=== PATIENT | female | born 1965 | race African-American/Black ===

== ENCOUNTER 2016-10-25 08:01 | Inpatient (IN) | payer MEDICAID ==
[2016-10-25] VITALS (18 sets, daily range): BP systolic 110–167; BP diastolic 48–78
[~2016-10-25] VITALS: Ht 175.3 cm; Wt 70.0 kg
[~2016-10-25 08:01] MED LIST: ADULT LOW DOSE81 MG; ASPIR-LOW81 MG PO; AUGMENTIN 875-1 EACH; BACLOFEN 10MG T10 MG PO; CLOPIDOGREL75 M1 PO; DOCUSATE SODIUM1 TA2; EXTRA STRENGTH500 MG PO; HUMULIN 70100 UNITS/; LEVAQUIN500 MG; LIPITOR40 MG PO; MACRODANTIN100 MG; MULTIVITAMIN1 SGL PO; NORVASC 10MG. T10 MG PO; POLYETHYLE17 GM/Dose PO; PRINIVIL10 MG PO; TRAMADOL50 M1 PO
--- NOTE | 2016-10-25 08:21 | Emergency Room Report ---
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 Y Clinical Suspician of Infection? Y Mental Status: 1 - Regular (Normal Baseline) Sepsis Risk:Low Sepsis Risk Have you (or family members/close friends) recently traveled outside the [place]? N If Yes, where/when: Have you had exposure to infectious disease within the past month? N TB? Other? Specify: Comment The patient is brought by EMS from skilled nursing. She reportedly had 6 episodes of vomiting last night and then developed a fever. She has suspected aspiration. The patient denies any pain. She admits to shortness of breath. She was supposed to be brought to this hospital today to have a PICC line inserted for antibiotics for a decubitus ulcer infection on her RIGHT hip. ALLERGIES Coded Allergies: No Known Allergies (10/25/16) Home Medications Reported Medications Insulin Regular (Regular Insulin 10ML Vial) 7 UNITS SC TID AMLODIPINE BESYLATE (Norvasc) Aspirin (Aspir-Low) Atorvastatin Calcium (Atorvastatin) BACLOFEN (Baclofen) CLOPIDOGREL BISULFATE (Clopidogrel) SENNOSIDES/DOCUSATE SODIUM (Docusate Sodium-Senna Tablet) 150 LISINOPRIL (Lisinopril) MULTIVITAMIN (Multivitamins) Polyethylene Glycol 3350 (Polyethylene Glycol (3350)) Levofloxacin (Levaquin 500MG) NITROFURANTOIN MACROCRYSTAL (Macrodantin 100MG) Acetaminophen (Extra Strength Non-Aspirin) TRAMADOL HCL (Tramadol) History Medical History General CVA? Yes Diabetes? Yes Surgical Hx Previous Surgery?Y RIGHT BKA LEFT GREAT TOE AMPUTATION Review of Systems All Other Systems Reviewed and Negative Physical Exam Vital Signs Vital Signs Date Time Temp Pulse Resp B/P Pulse O2 O2 Flow FiO2 Ox Delivery Rate 10/25 910 112 18 142/40 97 12 10/25 0802 100.2 108 18 167/73 100 12 General Appearance alert. debilitated. G-tube. bass catheter. R BKA. Heel pads on. On O2 by mask. Eye Exam - bilateral eye normal exam, bilateral eye PERRL, bilateral eye EOMI Ear, Nose, Throat hearing grossly normal, normal ENT inspection Neck normal inspection, non-tender, supple, full range of motion Respiratory Status Yes: trachea midline, chest symmetrical, non productive cough. No: respiratory distress. Lung Sounds bilateral: rhonchi. Cardiovascular normal exam, no peripheral edema, no gallop, no JVD, no murmur, no rub, normal peripheral pulses, tachycardia Peripheral Pulses Pulses normal Yes Gastrointestinal normal bowel sounds, normal exam, non tender, soft, no organomegaly, g-tube. Back normal inspection, no CVA tenderness, no vertebral tenderness Extremities R BKA., amputated LEFT great toe. All of her other LEFT toes have dark eschar, suspicious for dry gangrene. Rectal normal exam Nurse present during exam? Yes (January) Neurologic alert, oriented to person and place. unable to assess orientation to time., right hemiparesis. Mental status normal mood/affect Skin intact, normal color, warm/dry, large sacral decubitus without surrounding cellulitis or purulent discharge Lymphatic no adenopathy Medical Decision Making LABS/Meds/Orders Pt receiving controlled substance in ED? No Results/Orders Laboratory Tests 10/25/16 1055: Urine Color YELLOW, Urine Appearance CLEAR, Urine pH 8.5, Ur Specific [place] 1.010, Urine Protein 2+ H, Urine Ketones NEGATIVE, Urine Blood TRACE-INTACT, Urine Nitrate NEGATIVE, Urine Bilirubin NEGATIVE, Urine Urobilinogen 0.2, Ur Leukocyte Esterase TRACE H, Urine Bacteria 1+, Urine Glucose NEGATIVE 10/25/16 1053: WBC 22.2 *H, RBC 2.71 L, Hgb 6.7 *L, Hct 20.9 *L, MCV 77.1 L, RDW 16.2, Plt Count 942 *H, MPV 8.7, Gran % 90.2 H, Gran # 20.1 H, Lymphocytes % 6.7 L, Monocytes % 2.8, Eosinophils % 0.2, Basophils % 0.1, Lymphocytes # 1.5, Monocytes # 0.6, Eosinophils # 0.0, Basophils # 0.0, PUBS MCHC 32.0, MCH 24.7 L 10/25/16 1010: Stool Occult Blood NEGATIVE 10/25/16 0845: WBC 21.0 *H, RBC 2.94 L, Hgb 7.2 *L, Hct 22.9 *L, MCV 77.4 L, RDW 15.9, Plt Count 1019 *H, MPV 8.8, Gran % 91.4 H, Gran # 19.2 H, Total Counted 100, Lymphocytes % 6.0 L, Monocytes % 2.3, Eosinophils % 0.1, Basophils % 0.1, Neutrophils 91 H, Lymphocytes (Manual) 5 L, Lymphocytes # 1.3, Monocytes ( Manual) 4, Monocytes # 0.5, Eosinophils # 0.0, Basophils # 0.0, Platelet Estimate MARKED INCREASE, Hypochromasia 1+, Anisocytosis 1+, Microcytosis 1+, Schistocytes 2+, PUBS MCHC 31.7 L, MCH 24.5 L 10/25/16 0840: Troponin I < 0.02 10/25/16 0840: Lactic Acid 1.5 10/25/16 0840: Sodium 134 L, Potassium 4.8, Chloride 95 L, Carbon Dioxide 31, BUN 33 H, Creatinine 1.1 H, Estimated Creat Clear 79, Estimated GFR (MDRD) 53 L, Glucose 135 H, Calcium 9.8, Total Bilirubin 0.3, AST 36, ALT 39, Alkaline Phosphatase 215 H, Total Protein 6.9, Albumin 1.7 L, Globulin 5.2 H, Albumin/Globulin Ratio 0.3 L Current Medication Orders Sig/Alexia Start time Last Medication Dose Route Stop Time Status Admin Ceftriaxone Sodium 0 .STK-MED ONE 10/25 1017 DC IV Sodium Chloride 50 ML .STK-MED ONE 10/25 1017 DC IV Acetaminophen 0 .STK-MED ONE 10/25 1009 DC MA Ceftriaxone Sodium 1 GM ONCE ONE 10/25 929 DC 10/25 Sodium Chloride 50 ML IV 10/25 0959 1020 Clindamycin Phosphate 900 MG ONCE ONE 10/25 929 DC 10/25 Sodium Chloride 100 ML IV 10/25 1029 1235 Acetaminophen 650 MG ONCE ONE 10/25 829 DC 10/25 MA 10/25 0831 1021 Sodium Chloride 10 ML PRN PRN 10/25 0815 DC IV 10/26 0814 Orders Procedure Date/time Status Decision to admit 10/25 1056 Active CBC WITH AUTO DIFF 10/25 1051 Complete STOOL OCCULT BLOOD 10/25 1014 Complete DIFFERENTIAL-WBC 10/25 0745 Complete ELECTROCARDIOGRAM REQUEST 10/25 820 Active TROPONIN I 10/25 820 Complete 12 LEAD EKG-ARIAS (INITIAL) 10/25 819 Active LACTIC ACID 10/25 816 Complete URINARY CATHETER INSERT 10/25 815 Active CULTURE, BLOOD 10/25 815 Active URINALYSIS/COMPLETE 10/25 815 Complete CBC WITH AUTO DIFF 10/25 815 Complete CHEM 12 PROFILE 10/25 815 Complete CM/EKG CM/EKG Comments EKG interpreted by Reece Barillas MD: Rhythm: sinus tachycardia Rate: 112 [place]: normal Ectopy: none Conduction: normal ST Segment Changes: none T Wave Changes: Nonspecific Q Waves: none No evidence of acute ischemia or injury Baseline artifact present, but I consider the EKG adequate for accurate interpretation. XRAY/CT/US XRAY/CT/US XRAY chest XR interpretation by discussed w/radiologist Comment LEFT perihilar and lower lobe superior segment infiltrate with small LEFT effusion. Chest x-ray #2: X-ray interpreted by Reece Barillas M.D.: Central venous catheter in good position. No pneumothorax seen. Progress - 8:40 AM: Results of wound culture received from skilled nursing. Multiple organisms. Escherichia coli heavy growth, Providencia stuartii, heavy growth. Proteus species, no sensitivity to be done, moderate growth. Sensitivities reviewed. Both organisms tested are sensitive to amikacin, ceftriaxone, cefuroxime, ertapenem, and Zosyn. Prior H/H result from [place]: 9.7 on 08/25/16. PICC line was attempted in the emergency department by PICC line staff, unsuccessful. Central venous catheter placed by me. 10:45 AM:I have discussed the case with Dr. Barker who agrees to admit the patient to the hospital. We discussed the patient's clinical information, including history, exam, laboratory and radiology results and ED course. Per hospital procedure, I will write temporary bridge inpatient orders on the patient. Specific orders requested by the admitting physician: Repeat complete blood count. Antibiotics. Procedures Central Line Progress Central Venous Catheter Placement Performed by: REECE BARILLAS Consent: The procedure was performed in an emergent situation. Patient identity confirmed: arm band Time out: Immediately prior to procedure a "time out" was called to verify the correct patient, procedure, equipment, direct support professional and site/side marked as required. Indications: vascular access Site: RIGHT internal jugular Anesthesia: local infiltration Local anesthetic: lidocaine 2% Anesthetic total: 10 ml Patient sedated: no Preparation: skin prepped with 2% chlorhexidine Skin prep agent dried: skin prep agent completely dried prior to procedure Sterile barriers: all five maximum sterile barriers used - cap, mask, sterile gown, sterile gloves, and large sterile sheet Hand hygiene: hand hygiene performed prior to central venous catheter insertion Location details: right internal jugular Patient position: Trendelenburg Catheter type: triple lumen Catheter size: 7 Fr Pre-procedure: landmarks identified Ultrasound guidance: yes Number of attempts: 1 Successful placement: yes Post-procedure: line sutured Assessment: blood return through all ports Patient tolerance: Patient tolerated the procedure well with no immediate complications. Departure Departure Disposition Still a Patient Clinical Impression Primary Impression: Aspiration pneumonia Qualifiers: Aspiration pneumonia type: unspecified Laterality: left Lung location: lower lobe of lung Qualified Code: J69.0 - Pneumonitis due to inhalation of food and vomit Secondary Impressions: Anemia Qualifiers: Anemia type: unspecified type Qualified Code: D64.9 - Anemia, unspecified Decubitus ulcer, infected Qualifiers: Pressure ulcer stage: unspecified pressure ulcer stage Qualified Code: L89.90 - Pressure ulcer of unspecified site, unspecified stage Condition STABLE ED Critical Care Critical Care Yes Time spent 30-74 min (plus 30 min for procedure) Vital system(s) involved: severe sepsis I was present at bedside for Coordinating pt's care, Interpreting EKGs/Strips , During my initial exam, Reviewing lab results, Reviewing old records, Discussing pt condition, For re-examinations, Examining radiographs at 1316
[2016-10-25] MEDS ORDERED: INSULIN RE100 UNITS/ SC (08:39)
[2016-10-25 08:50] LABS: LYMPH # 1.3 K/mm3 (0.7-4.5)
[2016-10-25 08:59] LABS: HEMOGLOBIN 7.2 g/dL (12.2-16.2)
--- NOTE | 2016-10-25 09:26 | RADIOLOGY REPORT PS360 ---
CHEST-PORTABLE HISTORY: Fever with elevated white count POSSIBLE ASPIRATION COMPARISON: None available FINDINGS: There is increased density in the left hilar region which may be due to consolidation within the superior segment left lower lobe. Small left effusion also noted. Study is underpenetrated and there is motion artifact. Normal heart size. No acute bony anomalies. IMPRESSION: Left perihilar infiltrate/pneumonia with small left effusion
[2016-10-25 09:29] LABS: NEUTROPHILS 91 % (42-76)
[2016-10-25 10:18] LABS: STOOL OCCULT BLOOD NEGATIVE (NEG)
[2016-10-25 10:57] LABS: LYMPH # 1.5 K/mm3 (0.7-4.5); LYMPH % 6.7 % (10-50.0)
[2016-10-25 10:59] LABS: URINE BILIRUBIN - DIPSTICK NEGATIVE (NEG); URINE BLOOD TRACE-INTACT (NEG)
[2016-10-25 11:00] LABS: HEMOGLOBIN 6.7 g/dL (12.2-16.2)
--- NOTE | 2016-10-25 11:37 | RADIOLOGY REPORT PS360 ---
CHEST-PORTABLE HISTORY: CVC placement COMPARISON: None available FINDINGS: Right IJ central venous line has been placed with the tip in the region of the right atrium. No evidence of pneumothorax. There is cardiomegaly with mild pulmonary venous congestion. There is moderate patient rotation obscuring the left hilar region. There may be infiltrate also in the right lung base. IMPRESSION: 1. CVL tip in region of the right atrium. 2. Mild CHF with possible infiltrate in the right lung base
--- NOTE | 2016-10-25 15:42 | PHARMACY CLINIC NOTE ---
Patient Demographics Patient Demographics Admission date: 10/25/16 Date: 10/25/16 Time: 1542 Allergies Coded Allergies: No Known Allergies (10/25/16) HEIGHT- FT: 5 IN: 3.00 K.668 VTE General Information Labs: Laboratory Tests 10/25 10/25 1053 0845 Hematology Hgb (12.2 - 16.2 g/dL) 6.7 *L 7.2 *L Hct (37.0 - 47.0 %) 20.9 *L 22.9 *L Plt Count (142 - 424 K/mm3) 942 *H 1019 *H Disclaimer The following section includes nursing documentation that has been pulled in for pharmacy review. VTE prophylaxis NQF [id number] VTE prophylaxis ordered? Yes Type of prophylaxis/treatment: KATTY at 1473
--- NOTE | 2016-10-25 16:17 | HISTORY AND PHYSICAL REPORT ---
Demographics: Admit date: 10/25/16 Chief complaint: vomiting, fever PRIMARY DIAGNOSIS: SEPSIS, ASPIRATION PNEUMONIA Allergies: Coded Allergies: No Known Allergies (10/25/16) History of present illness: History of present illness: 51 year old black female with a significant history of CVA with right hemiparesis (07/31) and diabetes that is a resident at [facility] was transported to the ED via EMS for presumed aspiration. Nursing staff report vomiting episodes x 6 followed by cough and fever. Patient reports shortness of breath. Patient was scheduled for PICC line placement today for treatment of right hip decubitus ulcer infection. Patient appears much older than stated age. 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 She is confused at baseline. Contractures noted to LLE, flaccid on the right. In the ED, she was found to have leukocytosis with WBC 22.1, anemia with H/H 6.7/ 20.9 and thrombocytosis with platelets 942. CXR showed left perihilar infiltrate/pneumonia with small left effusion. Wound culture from nursing facility revealed E. Coli, Providencia Stuartii, and a Proteus species. Patient admitted to acute care for IV antibiotics and further evaluation. Spoke with Judith, patient's sister/POA regarding patients code status given her poor overall prognosis. She reports that patient has steadily declined since her daughter was struck by a car and tragically killed 2 years ago. Right BKA approximately one year ago at [facility] in [place]. CVA 07/31 was treated at [facility]. Code status changed to DNR. Past medical history: Immunization HX DT/Tetanus Unknown General CVA? Yes Diabetes? Yes Insulin Dependent: Yes Insulin Pump: No Home FSBS? Yes Past Surgical HX Previous Surgery?Y RIGHT BKA LEFT GREAT TOE AMPUTATION Current home meds: Reported Medications Ceftriaxone Sodium (Ceftriaxone) 1 GM IM DAILY Insulin Regular (Regular Insulin 10ML Vial) 7 UNITS SC TID AMLODIPINE BESYLATE (Norvasc) Aspirin (Aspir-Low) Atorvastatin Calcium (Atorvastatin) BACLOFEN (Baclofen) CLOPIDOGREL BISULFATE (Clopidogrel) LISINOPRIL (Lisinopril) MULTIVITAMIN (Multivitamins) Polyethylene Glycol 3350 (Polyethylene Glycol (3350)) NITROFURANTOIN MACROCRYSTAL (Macrodantin 100MG) Acetaminophen (Extra Strength Non-Aspirin) TRAMADOL HCL (Tramadol) Social Hx: Smoking HX Tobacco No Hx of Drug Use Drug Use? No Patient's support system is fair Review of systems: Constitutional fever. Eyes No: no symptoms reported. Ears, Nose, Mouth, Throat No no symptoms reported Respiratory cough, shortness of breath. Cardiovascular No no symptoms reported Gastrointestinal/Abdominal other (g-tube in place) Genitourinary No: no symptoms reported. Musculoskeletal other (left hemiparesis). Skin other (decubitus ulcers). Neurological Yes: see HPI. Psychiatric No: no symptoms reported. Exam: Lab data for last 24 hours: Laboratory Tests 10/25/16 1455: Miscellaneous Test POSITIVE 10/25/16 1055: Urine Color YELLOW, Urine Appearance CLEAR, Urine pH 8.5, Ur Specific [place] 1.010, Urine Protein 2+ H, Urine Ketones NEGATIVE, Urine Blood TRACE-INTACT, Urine Nitrate NEGATIVE, Urine Bilirubin NEGATIVE, Urine Urobilinogen 0.2, Ur Leukocyte Esterase TRACE H, Urine Bacteria 1+, Urine Glucose NEGATIVE 10/25/16 1053: WBC 22.2 *H, RBC 2.71 L, Hgb 6.7 *L, Hct 20.9 *L, MCV 77.1 L, RDW 16.2, Plt Count 942 *H, MPV 8.7, Gran % 90.2 H, Gran # 20.1 H, Lymphocytes % 6.7 L, Monocytes % 2.8, Eosinophils % 0.2, Basophils % 0.1, Lymphocytes # 1.5, Monocytes # 0.6, Eosinophils # 0.0, Basophils # 0.0, PUBS MCHC 32.0, MCH 24.7 L 10/25/16 1010: Stool Occult Blood NEGATIVE 10/25/16 0845: WBC 21.0 *H, RBC 2.94 L, Hgb 7.2 *L, Hct 22.9 *L, MCV 77.4 L, RDW 15.9, Plt Count 1019 *H, MPV 8.8, Gran % 91.4 H, Gran # 19.2 H, Total Counted 100, Lymphocytes % 6.0 L, Monocytes % 2.3, Eosinophils % 0.1, Basophils % 0.1, Neutrophils 91 H, Lymphocytes (Manual) 5 L, Lymphocytes # 1.3, Monocytes ( Manual) 4, Monocytes # 0.5, Eosinophils # 0.0, Basophils # 0.0, Platelet Estimate MARKED INCREASE, Hypochromasia 1+, Anisocytosis 1+, Microcytosis 1+, Schistocytes 2+, PUBS MCHC 31.7 L, MCH 24.5 L 10/25/16 0840: Troponin I < 0.02 10/25/16 08: Lactic Acid 1.5 10/25/16 0840: Sodium 134 L, Potassium 4.8, Chloride 95 L, Carbon Dioxide 31, BUN 33 H, Creatinine 1.1 H, Estimated Creat Clear 79, Estimated GFR (MDRD) 53 L, Glucose 135 H, Calcium 9.8, Total Bilirubin 0.3, AST 36, ALT 39, Alkaline Phosphatase 215 H, Total Protein 6.9, Albumin 1.7 L, Globulin 5.2 H, Albumin/Globulin Ratio 0.3 L Microbiology 10/25 839 BLOOD: Anaerobic Blood Culture - RECD 10/25 839 BLOOD: Aerobic Blood Culture - RECD 10/25 839 BLOOD: Anaerobic Blood Culture - RECD 10/25 839 BLOOD: Aerobic Blood Culture - RECD 10/25 08 BUTTOCK: Wound Culture - CAN Cancelled: Cancelled via OE: DOCTOR ORDER Admission vital signs: 1ST Vital Signs Result Date Time Pulse Ox 100 10/25 801 B/P 167/73 10/25 801 O2 Flow Rate 12 10/25 801 Temp 100.2 10/25 08 Pulse 108 10/25 08 Resp 18 10/25 801 O2 Delivery OXYGEN 10/25 1436 Exam General appearance: awake, follows simple commands, oriented to self only Eyes: conjunctiva clear ENT: dry mucous membranes, poor dentition Neck: non-tender (Right IJ TLC in place), no JVD Cardiovascular: regular rate & rhythm, no murmur, peripheral pulses diminished, 1+ RUE edema Respiratory: coarse rhonchi anteriorly, scattered posteriorly ABD: normal bowel sounds, soft, g-tube site w/o s/s infection, mild tenderness all quads Genitourinary: no hematuria, urine clear Extremities: flaccid RUE, minimal movement Right BKA, 1+ RUE edema, LLE with mild contracture, left great toe amputation, poor circulation with some necrosis on remaining toes Musculoskeletal: see above Skin: infected decubitus, see nursing note Neuro: follows simple commands, oriented to self Plan: Problem List 1. Aspiration pneumonia Assessment/Plan Continue clindamycin. NPO. 2. Decubitus ulcer, infected Assessment/Plan Rocephin as wound culture from ECF shows susceptibility. PT eval for wound care. 3. Anemia Assessment/Plan Occult stool negative. Transfuse PRBC. Will recheck in the am. 4. History of CVA with residual deficit Assessment/Plan Flaccid RUE, minimal movement RLE 5. Diabetes Assessment/Plan FSBS with sliding scale coverage. 6. Thrombocytosis Plan: see above
[2016-10-25 16:24] LABS: ABO BLOOD TYPE A; RH BLOOD TYPE POSITIVE
[2016-10-25 16:38] LABS: ANTIHUMAN GLOB CROSSMATCH COMPAT
[2016-10-25] MEDS ORDERED: CEFTRIAXONE AMER1 GM IM (16:43)
[2016-10-26] VITALS (14 sets, daily range): BP systolic 128–183; BP diastolic 59–84
--- NOTE | 2016-10-26 07:42 | ACUTE CARE PROGRESS NOTE (QUA) ---
See Addendum Progress Notes Subjective Date 10/26/16 Time 0740 Note Patient's blood pressure and overall mental status had stabilized vis--vis yesterday's date. She is alert this morning and communicative. She denies pain. She reports that she does not feel chilled or hot. Anterior lung harris have rhonchi, poor air movement, at baseline. G-tube site looks good, her right foot continues to be afflicted with significant dry and wet gangrene, left thigh stump looks pretty good. Previously noted wounds documented by nursing staff noted. Objective Findings Last VS-Temp:98.7 B/P:132/68 Pulse:100 Resp:20 SaO2:95 OXYGEN Last weight lbs:158 oz:0 K.668 Method:Bed Scales Assessment/Plan Problem List 1. Aspiration pneumonia Qualifiers: Aspiration pneumonia type: unspecified Laterality: left Lung location: lower lobe of lung Qualified Code: J69.0 - Pneumonitis due to inhalation of food and vomit 2. Decubitus ulcer, infected Qualifiers: Pressure ulcer stage: unspecified pressure ulcer stage Qualified Code: L89.90 - Pressure ulcer of unspecified site, unspecified stage 3. Anemia Qualifiers: Anemia type: unspecified type Qualified Code: D64.9 - Anemia, unspecified 4. History of CVA with residual deficit 5. Diabetes 6. Thrombocytosis Patient condition Improving, Guarded, patient is mildly improved but remains critically ill and has an extremely poor prognosis. Meds zinc and vitamin C for wound care issues, and continue current broad spectrum antibiotics why await culture results. This inpt stay is expected to cross 2 MNs from start of care Yes at 0742
[2016-10-27] VITALS (7 sets, daily range): BP systolic 123–167; BP diastolic 60–99
--- NOTE | 2016-10-27 08:41 | ACUTE CARE PROGRESS NOTE (QUA) ---
Progress Notes Subjective Date 10/27/16 Time 0715 Note Patient is alert, eyes open. She is communicating yes/no answers. She had a fever through the night that has resolved this morning. She denies pain or discomfort. Alert to self, follows simple commands. S1, S2, rate regular. Anterior lung harris clear, poor air movement. Abdomen soft, non-tender. Normoactive BS. G- tube site looks good, her right foot with dry gangrene noted. Wounds documented by nursing staff noted. Patient/family reports: no complaints Nursing reports: no complaints Objective Findings Last VS-Temp:98.7 B/P:123/60 Pulse:113 Resp:20 SaO2:97 OXYGEN Last weight lbs:149 oz:2 K.642 Method:Bed Scales Reviewed: medications, vital signs, lab results Assessment/Plan Problem List 1. Aspiration pneumonia Qualifiers: Aspiration pneumonia type: unspecified Laterality: left Lung location: lower lobe of lung Qualified Code: J69.0 - Pneumonitis due to inhalation of food and vomit 2. Decubitus ulcer, infected Qualifiers: Pressure ulcer stage: unspecified pressure ulcer stage Qualified Code: L89.90 - Pressure ulcer of unspecified site, unspecified stage 3. Anemia Qualifiers: Anemia type: unspecified type Qualified Code: D64.9 - Anemia, unspecified 4. History of CVA with residual deficit 5. Diabetes 6. Thrombocytosis Patient condition Improving, Guarded Plan: continue current care This inpt stay is expected to cross 2 MNs from start of care Yes Comments: Patient has shown some improvement; however her overall prognosis continues to be poor. Continue antibiotics based on ECF culture results. Zinc and vitamin C for wound support. PT for wound care. Process Engineering Intern consult to restart tube feeding.
[2016-10-27 09:07] LABS: LYMPH # 1.8 K/mm3 (0.7-4.5)
[2016-10-27 09:20] LABS: HEMOGLOBIN 10.5 g/dL (12.2-16.2)
[2016-10-27 11:47] LABS: NEUTROPHILS 88 % (42-76)
[2016-10-28] VITALS (7 sets, daily range): BP systolic 137–172; BP diastolic 59–78
--- NOTE | 2016-10-28 07:48 | ACUTE CARE PROGRESS NOTE (QUA) ---
Progress Notes Subjective Date 10/28/16 Time 0746 Note Patient remains alert, responsive. Once again denies pain. She continues to run fevers. Vital signs are stabilized, however. Lungs anterior harris are clear, abdomen soft and G-tube feedings are infusing well and a low rate. Leg continues to look up dismal, with gangrene both dry and wet in the foot. Previously noted wounds have made some improvement with better nursing care and hygiene here in the hospital. PT reports that it seems to be infectious matter coming from her vagina on dressing change. Objective Findings Last VS-Temp:99.9 B/P:152/78 Pulse:112 Resp:24 SaO2:91 OXYGEN Last weight lbs:149 oz:2 K.642 Method:Bed Scales Assessment/Plan Problem List 1. Aspiration pneumonia Qualifiers: Aspiration pneumonia type: unspecified Laterality: left Lung location: lower lobe of lung Qualified Code: J69.0 - Pneumonitis due to inhalation of food and vomit 2. Decubitus ulcer, infected Qualifiers: Pressure ulcer stage: unspecified pressure ulcer stage Qualified Code: L89.90 - Pressure ulcer of unspecified site, unspecified stage 3. Anemia Qualifiers: Anemia type: unspecified type Qualified Code: D64.9 - Anemia, unspecified 4. History of CVA with residual deficit 5. Diabetes 6. Thrombocytosis Patient condition Deteriorating, Guarded, overall prognosis is poor and essentially terminal. I wonder about hospice care and we will discuss with family when available. Otherwise she'll require long-term antibiotics, extensive specialty wound care, and ongoing tube feedings. I will add Flagyl for the high possibility of anaerobic GI issues. This inpt stay is expected to cross 2 MNs from start of care Yes at 0747
--- NOTE | 2016-10-28 07:49 | ACUTE CARE PROGRESS NOTE (QUA) ---
Progress Notes Subjective Date 10/28/16 Time 0748 Assessment/Plan Problem List 1. Aspiration pneumonia Qualifiers: Aspiration pneumonia type: unspecified Laterality: left Lung location: lower lobe of lung Qualified Code: J69.0 - Pneumonitis due to inhalation of food and vomit 2. Decubitus ulcer, infected Qualifiers: Pressure ulcer stage: unspecified pressure ulcer stage Qualified Code: L89.90 - Pressure ulcer of unspecified site, unspecified stage 3. Anemia Qualifiers: Anemia type: unspecified type Qualified Code: D64.9 - Anemia, unspecified 4. History of CVA with residual deficit 5. Diabetes 6. Thrombocytosis This inpt stay is expected to cross 2 MNs from start of care Yes Antibiotic Stewardship (2) Current Culture Results Microbiology 10/25 839 BLOOD: Anaerobic Blood Culture - RES 10/25 839 BLOOD: Aerobic Blood Culture - RES 10/25 830 BUTTOCK: Wound Culture - CAN Cancelled: Cancelled via OE: DOCTOR ORDER Infxn that will respond? Yes Right drug,dose,and route? Yes More targeted antbx? No How long atbx needed? 14 at 0748
[2016-10-29] VITALS (8 sets, daily range): BP systolic 158–176; BP diastolic 71–91
--- NOTE | 2016-10-29 07:57 | ACUTE CARE PROGRESS NOTE (QUA) ---
Progress Notes Admission Date: 10/25/16 Subjective Date 10/29/16 Time 0755 Note Patient is unchanged. Continues to have minimal complaints but does not converse very fluently. Anterior lung harris have rhonchi, heart rate regular. Skin exam remains essentially unchanged although hygiene is obviously better since admission the hospital. Objective Findings Last VS-Temp:99.8 B/P:161/88 Pulse:112 Resp:24 SaO2:96 OXYGEN Last weight lbs:149 oz:2 K.642 Method:Bed Scales Assessment/Plan Problem List 1. Aspiration pneumonia Qualifiers: Aspiration pneumonia type: unspecified Laterality: left Lung location: lower lobe of lung Qualified Code: J69.0 - Pneumonitis due to inhalation of food and vomit 2. Decubitus ulcer, infected Qualifiers: Pressure ulcer stage: unspecified pressure ulcer stage Qualified Code: L89.90 - Pressure ulcer of unspecified site, unspecified stage 3. Anemia Qualifiers: Anemia type: unspecified type Qualified Code: D64.9 - Anemia, unspecified 4. History of CVA with residual deficit 5. Diabetes 6. Thrombocytosis Patient condition Stable, Guarded Plan: continue current care, care management continues to work on appropriate placement. She may be a hospice candidate. We will discuss with family. This inpt stay is expected to cross 2 MNs from start of care Yes Antibiotic Stewardship (2) Infxn that will respond? Yes Right drug,dose,and route? Yes More targeted antbx? No at 0757
[2016-10-30] VITALS (8 sets, daily range): BP systolic 143–184; BP diastolic 68–92
--- NOTE | 2016-10-30 08:16 | ACUTE CARE PROGRESS NOTE (QUA) ---
Progress Notes Subjective Date 10/30/16 Time 0814 Note Ms. Hay continues without much change. She remains alert, and will smile and have a few words when she is conversed with, but does not really seem to have a meaningful concept of her medical condition. Lungs have lots of rhonchi and crackles throughout, worsened over her admission exam. Oxygen requirement continues to be high, with Ventimask noted. Heart rate remains regular, abdomen is soft, G-tube site looks good. Wounds continue to look abysmal with evidence of wet and dry gangrene in the foot and in the sacral areas. Continues to run fevers. Leukocytosis noted again this morning. Objective Findings Last VS-Temp:100.0 B/P:164/73 Pulse:114 Resp:28 SaO2:93 OXYGEN Last weight lbs:149 oz:2 K.642 Method:Bed Scales Assessment/Plan Problem List 1. Aspiration pneumonia Qualifiers: Aspiration pneumonia type: unspecified Laterality: left Lung location: lower lobe of lung Qualified Code: J69.0 - Pneumonitis due to inhalation of food and vomit 2. Decubitus ulcer, infected Qualifiers: Pressure ulcer stage: unspecified pressure ulcer stage Qualified Code: L89.90 - Pressure ulcer of unspecified site, unspecified stage 3. Anemia Qualifiers: Anemia type: unspecified type Qualified Code: D64.9 - Anemia, unspecified 4. History of CVA with residual deficit 5. Diabetes 6. Thrombocytosis Patient condition Deteriorating, Guarded Plan: continue current care, I had a long discussion with her sister this morning by phone, Ms. Cristina Hay who is her power of straightener gun parts. They have considered hospice care and are interested in this, with the knowledge that this would mean the cessation of IV antibiotics and other aggressive care. They're interested in transfer to the hospice care center on the [facility], as Ms. Cristina Hay is employed at the [employer] and would be able to be very close to her sister. We will discuss this with hospice tomorrow. This inpt stay is expected to cross 2 MNs from start of care Yes Antibiotic Stewardship (2) Infxn that will respond? Yes Right drug,dose,and route? Yes More targeted antbx? No at 0816
--- NOTE | 2016-10-30 08:16 | ACUTE CARE PROGRESS NOTE (QUA) ---
Progress Notes Subjective Date 10/30/16 Time 0814 Note Ms. Hay continues without much change. She remains alert, and will smile and have a few words when she is conversed with, but does not really seem to have a meaningful concept of her medical condition. Lungs have lots of rhonchi and crackles throughout, worsened over her admission exam. Oxygen requirement continues to be high, with Ventimask noted. Heart rate remains regular, abdomen is soft, G-tube site looks good. Wounds continue to look abysmal with evidence of wet and dry gangrene in the foot and in the sacral areas. Continues to run fevers. Leukocytosis noted again this morning. Objective Findings Last VS-Temp:100.0 B/P:164/73 Pulse:114 Resp:28 SaO2:93 OXYGEN Last weight lbs:149 oz:2 K.642 Method:Bed Scales Assessment/Plan Problem List 1. Aspiration pneumonia Qualifiers: Aspiration pneumonia type: unspecified Laterality: left Lung location: lower lobe of lung Qualified Code: J69.0 - Pneumonitis due to inhalation of food and vomit 2. Decubitus ulcer, infected Qualifiers: Pressure ulcer stage: unspecified pressure ulcer stage Qualified Code: L89.90 - Pressure ulcer of unspecified site, unspecified stage 3. Anemia Qualifiers: Anemia type: unspecified type Qualified Code: D64.9 - Anemia, unspecified 4. History of CVA with residual deficit 5. Diabetes 6. Thrombocytosis Patient condition Deteriorating, Guarded Plan: continue current care, I had a long discussion with her sister this morning by phone, Ms. Cristina Hay who is her power of health care attorney. They have considered hospice care and are interested in this, with the knowledge that this would mean the cessation of IV antibiotics and other aggressive care. They're interested in transfer to the hospice care center on the [facility], as Ms. Cristina Hay is employed at the and would be able to be very close to her sister. We will discuss this with hospice tomorrow. This inpt stay is expected to cross 2 MNs from start of care Yes Antibiotic Stewardship (2) Infxn that will respond? Yes Right drug,dose,and route? Yes More targeted antbx? No at 0816
[2016-10-31] VITALS (8 sets, daily range): BP systolic 150–203; BP diastolic 72–90
--- NOTE | 2016-10-31 07:52 | ACUTE CARE PROGRESS NOTE (QUA) ---
Progress Notes Subjective Date 10/31/16 Time 0750 Note Patient has declined over the past 24 hours with more obtundation and less verbal communication. She is less responsive to stimuli. She continues to run fevers, urine output has diminished slightly. Exam otherwise unchanged with continuing severe gangrene of the foot, buttock/ decubitus area and rhonchi in the chest the Objective Findings Last VS-Temp:99.6 B/P:169/73 Pulse:122 Resp:44 SaO2:91 OXYGEN Last weight lbs:154 oz:4 K.967 Method:Bed Scales Assessment/Plan Problem List 1. Aspiration pneumonia Qualifiers: Aspiration pneumonia type: unspecified Laterality: left Lung location: lower lobe of lung Qualified Code: J69.0 - Pneumonitis due to inhalation of food and vomit 2. Decubitus ulcer, infected Qualifiers: Pressure ulcer stage: unspecified pressure ulcer stage Qualified Code: L89.90 - Pressure ulcer of unspecified site, unspecified stage 3. Anemia Qualifiers: Anemia type: unspecified type Qualified Code: D64.9 - Anemia, unspecified 4. History of CVA with residual deficit 5. Diabetes 6. Thrombocytosis Patient condition Deteriorating Plan: please see no yesterday regarding my conversation with her sister, and I confirmed this conversation with our care management team today who have also spoken with the patient's sister who is her power of consumer attorney and health care surrogate. In view of her terminal prognosis and need for comfort measures we will de-escalate therapy today, stop IV antibiotics, continue only comfort medications and O2 as tolerated. Hospice referral. This inpt stay is expected to cross 2 MNs from start of care Yes Antibiotic Stewardship (2) Current Culture Results Microbiology 10/25 839 BLOOD: Anaerobic Blood Culture - RES 10/25 839 BLOOD: Aerobic Blood Culture - RES 10/25 830 BUTTOCK: Wound Culture - CAN Cancelled: Cancelled via OE: DOCTOR ORDER Infxn that will respond? Yes Right drug,dose,and route? Yes More targeted antbx? No How long atbx needed? 0 Comment: Stopping antibiotics because of the escalation of care today. at 0751
[2016-10-31] MEDS ORDERED: HYOSCYAMINE0.125 M1 SL (17:39)
[2016-10-31] MEDS ORDERED: MORPHINE IV (17:39)
[2016-10-31] MEDS ORDERED: LORAZEPAM IV (17:39)
--- NOTE | 2016-10-31 17:43 | DISCHARGE SUMMARY STANDARD ---
Demographics Admit date: 10/25/16 Discharge date: 10/31/16 History of present illness History of present illness 51 year old black female with a significant history of CVA with right hemiparesis (07/31) and diabetes that is a resident at [facility] was transported to the ED via EMS for presumed aspiration. Nursing staff report vomiting episodes x 6 followed by cough and fever. Patient reports shortness of breath. Patient was scheduled for PICC line placement today for treatment of right hip decubitus ulcer infection. Patient appears much older than stated age. 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 She is confused at baseline. Contractures noted to LLE, flaccid on the right. In the ED, she was found to have leukocytosis with WBC 22.1, anemia with H/H 6.7/ 20.9 and thrombocytosis with platelets 942. CXR showed left perihilar infiltrate/pneumonia with small left effusion. Wound culture from nursing facility revealed E. Coli, Providencia Stuartii, and a Proteus species. Patient admitted to acute care for IV antibiotics and further evaluation. On admission, I spoke with Judith, patient's sister/POA regarding patients code status given her poor overall prognosis. She reports that patient has steadily declined since her daughter was struck by a car and tragically killed 2 years ago. Right BKA approximately one year ago at [facility] in [place]. CVA 07/31 was treated at [facility]. Code status changed to DNR. Hospital Course Hospital Course: Patient was admitted, and started on broad-spectrum antibiotics as noted in the admission H&P. Wound care was initiated, she was discovered to have a significant decubitus buttock ulcer with significant tunneling, evidence of massive amounts of skin necrosis as well as gangrene, both wet and dry on the right foot. She was extremely poorly responsive to stimuli and nursing interventions. Blood cultures, skin cultures and sputum cultures were ordered. So far they have been nondiagnostic. Unfortunately, patient has shown worsening signs or tissue perfusion, worsening signs of diminished urine output and worsening oxygenation patterns with hierarchy requirements and diminished responsiveness. As noted in the progress notes, I have had conversations with her sister indicating that she has for several months felt that her sister will not improve and has considered hospice care but has never been offered this by prior caregivers. Given patient's significant vascular disease, significant issues with tissue perfusion, oxygenation problems and intrinsic nutritional issues I think palliative care is indicated. The family is in agreement and patient will be transferred to hospice care center today for terminal/palliative care. Discharge diagnoses Problem List 1. Aspiration pneumonia 2. Decubitus ulcer, infected 3. Anemia 4. History of CVA with residual deficit 5. Diabetes 6. Thrombocytosis Medications Medications: Discharge meds are as noted. Follow up Follow up in office in: 1 DAY with: OTHER at 1006
--- NOTE | 2016-10-31 17:43 | DISCHARGE SUMMARY STANDARD ---
Demographics Admit date: 10/25/16 Discharge date: 10/31/16 History of present illness History of present illness 51 year old black female with a significant history of CVA with right hemiparesis (07/31) and diabetes that is a resident at [facility] was transported to the ED via EMS for presumed aspiration. Nursing staff report vomiting episodes x 6 followed by cough and fever. Patient reports shortness of breath. Patient was scheduled for PICC line placement today for treatment of right hip decubitus ulcer infection. Patient appears much older than stated age. 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 She is confused at baseline. Contractures noted to LLE, flaccid on the right. In the ED, she was found to have leukocytosis with WBC 22.1, anemia with H/H 6.7/ 20.9 and thrombocytosis with platelets 942. CXR showed left perihilar infiltrate/pneumonia with small left effusion. Wound culture from nursing facility revealed E. Coli, Providencia Stuartii, and a Proteus species. Patient admitted to acute care for IV antibiotics and further evaluation. On admission, I spoke with Judith, patient's sister/POA regarding patients code status given her poor overall prognosis. She reports that patient has steadily declined since her daughter was struck by a car and tragically killed 2 years ago. Right BKA approximately one year ago at [facility] in [place]. CVA 07/[address] [facility]. Code status changed to DNR. Hospital Course Hospital Course: Patient was admitted, and started on broad-spectrum antibiotics as noted in the admission H&P. Wound care was initiated, she was discovered to have a significant decubitus buttock ulcer with significant tunneling, evidence of massive amounts of skin necrosis as well as gangrene, both wet and dry on the right foot. She was extremely poorly responsive to stimuli and nursing interventions. Blood cultures, skin cultures and sputum cultures were ordered. So far they have been nondiagnostic. Unfortunately, patient has shown worsening signs or tissue perfusion, worsening signs of diminished urine output and worsening oxygenation patterns with hierarchy requirements and diminished responsiveness. As noted in the progress notes, I have had conversations with her sister indicating that she has for several months felt that her sister will not improve and has considered hospice care but has never been offered this by prior caregivers. Given patient's significant vascular disease, significant issues with tissue perfusion, oxygenation problems and intrinsic nutritional issues I think palliative care is indicated. The family is in agreement and patient will be transferred to hospice care center today for terminal/palliative care. Discharge diagnoses Problem List 1. Aspiration pneumonia 2. Decubitus ulcer, infected 3. Anemia 4. History of CVA with residual deficit 5. Diabetes 6. Thrombocytosis Medications Medications: Discharge meds are as noted. Follow up Follow up in office in: 1 DAY with: OTHER at 2738
== END 2016-10-31 20:34 | disposition hospice, inpatient (51) | DRG 178 ==
LOC: ER 08:01 → 2ND 10:57
PROVIDERS: Emergency Medicine; Internal Medicine Adolescent Medicine
DX: J69.0 Pneumonitis due to inhalation of food and vomit (principal); I69.351 Hemiplegia and hemiparesis following cerebral infarction affecting right dominant side; L89.309 Pressure ulcer of unspecified buttock, unspecified stage; I96 Gangrene, not elsewhere classified; E11.9 Type 2 diabetes mellitus without complications; D64.9 Anemia, unspecified; D47.3 Essential (hemorrhagic) thrombocythemia
CPT/HCPCS: P9016